=== PATIENT | female | born 2005 | race Caucasian/White ===

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

== ENCOUNTER 2024-10-30 02:31 | Observation (INO) | payer BC, OTHER ==
[~2024-10-30] VITALS: Ht 172.7 cm; Wt 77.1 kg
[2024-10-30 03:22] LABS: BASOPHILS ABSOLUTE AUTO 0.03 K/mm3 (0.00-0.23); BASOPHILS PERCENT AUTO 0 % (0-2); EOSINOPHILS ABSOLUTE AUTO 0.15 K/mm3 (0.00-0.68); EOSINOPHILS PERCENT AUTO 2 % (0-6); Hemoglobin 13.1 g/dL (11.5-16.0); IMMATURE GRAN ABSOLUTE AUTO 0.03 K/mm3 (0.00-0.10); IMMATURE GRAN PERCENT AUTO 0 % (0-1); LYMPHOCYTES ABSOLUTE AUTO 2.94 K/mm3 (0.84-5.20); LYMPHOCYTES PERCENT AUTO 34 % (21-46); MONOCYTES ABSOLUTE AUTO 0.67 K/mm3 (0.16-1.47); MONOCYTES PERCENT AUTO 8 % (4-13); Mean Corpuscular HGB Conc 33.6 g/dL (31.5-36.5); Mean Corpuscular Volume 89 fL (80-100); NEUTROPHILS ABSOLUTE AUTO 4.88 K/mm3 (1.96-9.15); NEUTROPHILS PERCENT AUTO 56 % (41-73); Platelet Count 244 K/mm3 (150-400); RDW Coefficient Variation 12.7 % (11.7-14.2); RDW Standard Deviation 41.9 fL (35.1-46.3); Red Blood Cell Count 4.37 M/mm3 (3.80-5.20)
[2024-10-30 04:47] LABS: Source, Urine Clean Catch
[2024-10-30 04:58] LABS: Bun/Creatinine Ratio 18.9 (12.0-20.0); Calcium, Blood 8.3 mg/dL (8.5-10.1); Creatinine, Blood 0.58 mg/dL (0.40-1.00); Potassium, Blood 3.7 mmol/L (3.5-5.5)
[2024-10-30 05:02] LABS: Appearance, Urine Clear (Clear); Bilirubin, Urine Neg (Neg); Blood, Urine Neg (Neg); Color, Urine Yellow (P-Yellow); Glucose Qualitative, Urine Neg (Neg); Ketones, Urine Neg (Neg); Leukocyte Esterase, Urine Neg (Neg); Nitrite, Urine Neg (Neg); Protein, Urine Neg (Neg); Urobilinogen, Urine NORM (Normal)
[2024-10-30 05:27] LABS: Albumin, Blood 3.3 g/dL (3.4-5.0); Bilirubin, Total 0.2 mg/dL (0.1-1.0); Total Protein, Blood 6.2 g/dL (6.4-8.2)
[2024-10-30] MEDS ORDERED: Ondansetron HCl 2 MG / ML 2ML Vial IV ONE (05:30)
[2024-10-30] MEDS ORDERED: NS 1,000 ML IV SCH ×3 (05:30→08:00)
[2024-10-30] MEDS ORDERED: FentaNYL Citrate 50 MCG/ML 2 ML Injection IV ONE (05:30)
[2024-10-30] MEDS ORDERED: MetroNIDAZOLE 500MG/NS 100 ml 100 ML IV ONE (07:00)
[2024-10-30] MEDS ORDERED: Morphine Sulfate 4 MG/1 ML Injection IV ONE (07:00)
[2024-10-30] MEDS ORDERED: CefTRIAXone Sodium 1,000 MG in NS 100 ML IV ONE (07:00)
[2024-10-30] MEDS ORDERED: Ondansetron HCl 2 MG / ML 2ML Vial IV PRN (07:40)
[2024-10-30] MEDS ORDERED: FLU VACC TS2024-25(6MOS UP)/PF 45 MCG/0.5 ML SYRINGE IM SCH (07:40)
[2024-10-30] MEDS ORDERED: Morphine Sulfate 4 MG/1 ML Injection IV PRN (07:40)
[2024-10-30 12:41] VITALS: BP 134/84
[2024-10-30] MEDS ORDERED: NEXPLANON68 MG SQ (12:47)
[2024-10-30] MEDS ORDERED: Indocyanine Green 25 MG Vial IV ONE (13:00)
[2024-10-30] MEDS ORDERED: MetroNIDAZOLE 500MG/NS 100 ml 100 ML IV SCH (13:00)
--- NOTE | 2024-10-30 13:02 | NUR ---
ARRIVAL NOTE PT IS A/OX4, IND, AMBULATING IN ROOM. DENIES PAIN AND NAUSEA AT THIS TIME. MOM AT BEDSIDE. VSS. CALL LIGHT IN REACH.
[2024-10-30 14:44] VITALS: BP 125/78
--- NOTE | 2024-10-30 18:06 | NUR ---
SHIFT SUMMARY PT IS A/O X4, INDEPENDENT IN ROOM, TOLERATING CL DIET AND VOIDING. VSS. PT WILL BE NPO AT 0000 FOR SURGERY TOMORROW. MEDICATED FOR NAUSEA, PT REPORTS PAIN IS TOLERABLE. FAMILY AT BEDSIDE. CALL LIGHT IN REACH.
[2024-10-30 19:31] VITALS: BP 117/74
[2024-10-30] MEDS ORDERED: NS 250 ML IV PRN (22:25)
[2024-10-30] MEDS ORDERED: Metoclopramide HCl 5MG / ML 2ML Vial IV PRN (22:30)
[2024-10-31] VITALS (13 sets, daily range): BP systolic 102–158; BP diastolic 72–99
--- NOTE | 2024-10-31 05:19 | NUR ---
SHIFT SUMMARY NOC PT A/O X 4. PLEASANT AND COOPERATIVE WITH CARE. VSS. PT HAD C/O RUQ 5/10 PAIN AT BEGINNING OF SHIFT AND MEDICATED PER EMAR. PT ALSO HAD C/O N/V X 2 AND GIVEN ANTIEMETICS. PT RECEIVING IV ABX AND HAS BEEN NPO SINCE MIDNIGHT IN PREPARTION FOR CHOLY SOMETIME TODAY. PT MOM STAYED NIGHT WITH PT TO HELP RELIEVE ANXIETY ABOUT PROCEDURE. PT CURRENTLY RESTING WITH BED IN LOWEST POSITON, AND CALL LIGHT WITHIN REACH.
[2024-10-31 06:57] LABS: BASOPHILS ABSOLUTE AUTO 0.02 K/mm3 (0.00-0.23); BASOPHILS PERCENT AUTO 0 % (0-2); EOSINOPHILS ABSOLUTE AUTO 0.03 K/mm3 (0.00-0.68); EOSINOPHILS PERCENT AUTO 0 % (0-6); Hemoglobin 13.8 g/dL (11.5-16.0); IMMATURE GRAN ABSOLUTE AUTO 0.07 K/mm3 (0.00-0.10); IMMATURE GRAN PERCENT AUTO 1 % (0-1); LYMPHOCYTES ABSOLUTE AUTO 2.33 K/mm3 (0.84-5.20); LYMPHOCYTES PERCENT AUTO 33 % (21-46); MONOCYTES ABSOLUTE AUTO 0.58 K/mm3 (0.16-1.47); MONOCYTES PERCENT AUTO 8 % (4-13); Mean Corpuscular HGB 29.4 pg (26.0-34.0); Mean Corpuscular HGB Conc 33.7 g/dL (31.5-36.5); Mean Corpuscular Volume 87 fL (80-100); NEUTROPHILS ABSOLUTE AUTO 3.96 K/mm3 (1.96-9.15); NEUTROPHILS PERCENT AUTO 57 % (41-73); RDW Coefficient Variation 12.7 % (11.7-14.2); RDW Standard Deviation 40.6 fL (35.1-46.3); Red Blood Cell Count 4.69 M/mm3 (3.80-5.20); White Blood Cell Count 6.99 K/mm3 (4.00-11.30)
[2024-10-31 07:18] LABS: Bun/Creatinine Ratio 13.9 (12.0-20.0); Calcium, Blood 8.4 mg/dL (8.5-10.1); Creatinine, Blood 0.43 mg/dL (0.40-1.00)
[2024-10-31 08:44] LABS: Mean Platelet Volume 10.1 fL (9.1-12.4); Platelet Count 224 K/mm3 (150-400)
[2024-10-31] MEDS ORDERED: CefTRIAXone Sodium 1,000 MG in NS 100 ML IV SCH (09:00)
[2024-10-31] MEDS ORDERED: CeFAZolin Sodium 2,000 MG in NS 100 ML IV SCH (11:35)
[2024-10-31] MEDS ORDERED: Lactated Ringer's 1,000 ML IV SCH (11:35)
--- NOTE | 2024-10-31 11:58 | NUR ---
PT TAKEN TO DAY SURGERY.
--- NOTE | 2024-10-31 12:05 | NUR ---
PT TO UNIT VIA W/C. ABLE TO TRANSFER INDEPENDENTLY TO [facility] IN DAY SURGERY. MOM AT BEDSIDE. History, Chart, Medications and Allergies reviewed before start of procedure. Pre-Op teaching done. Pt verbalizes understanding. ALL BELONGINGS LEFT IN PT'S ROOM. PT'S NOSE STUD REMAINS IN PLACE. JEWELRY REFUSAL SIGNED AND TAPE PLACED OVER PIERCING.
[2024-10-31] MEDS ORDERED: Bupivacaine 0.25% Epi 1:200000 30 ML Vial ONE (12:45)
[2024-10-31] MEDS ORDERED: Rocuronium Bromide 10 MG/ML 5ML Injection IV ONE (12:53)
[2024-10-31] MEDS ORDERED: Ondansetron HCl 2 MG / ML 2ML Vial ONE (12:53)
[2024-10-31] MEDS ORDERED: Dexamethasone Sod Phos 10 MG/ML 1ML VIAL ONE (12:53)
[2024-10-31] MEDS ORDERED: Ketorolac Tromethamine 30mg Vial ONE (12:53)
[2024-10-31] MEDS ORDERED: HYDROmorphone HCl 0.5 MG/0.5 ML SYR ONE ×2 (12:54→14:48)
[2024-10-31] MEDS ORDERED: FentaNYL Citrate 50 MCG/ML 2 ML Injection ONE ×2 (12:55→13:52)
[2024-10-31] MEDS ORDERED: propofoL 20 ML IV ONE ×2 (12:55→14:10)
[2024-10-31] MEDS ORDERED: propofoL 50 ML IV ONE (12:56)
[2024-10-31] MEDS ORDERED: Sugammadex Sodium 200 MG/2ML SDV (100 MG/ML) ONE (12:56)
--- NOTE | 2024-10-31 13:39 | NUR ---
10/31/24 1339 Caprice,Renee FLAGYL 500MG STARTED IN PREOP AT 1247.
[2024-10-31] MEDS ORDERED: HYDROcodone 5-APAP 325 TAB PO PRN (14:30)
--- NOTE | 2024-10-31 15:23 | NUR ---
POST OP ARRIVED FROM PACU VIA HANDYRDAVID, AWAKE, A&OX4, DENIES ANY NEED FOR PAIN OR NAUSEA MED AT THIS TIME, LUNGS CLEAR T/O, HRR, ACTIVE BT'S X4, ABD SOFT, SLIGHTLY DISTENDED, 4 ABD LAP INCISIONS NOTED W/ GAUZE AND TEGADERM, C/D/I, IV RFA PATENT, CLEAR LIQUIDS GIVEN, CONT. TO MONITOR VS AND ANY CHANGES.
[2024-10-31] MEDS ORDERED: Ibuprofen 400 MG Tab PO PRN (16:30)
[2024-10-31] MEDS ORDERED: IBUP400 PO (17:03)
[2024-10-31] MEDS ORDERED: HYDR1TAB94 PO (17:04)
[2024-10-31] MEDS ORDERED: METO10 PO (18:24)
--- NOTE | 2024-10-31 18:34 | NUR ---
DC'D HOME, DC INSTRUCTIONS GIVEN, VERBALIZED UNDERSTANDING, REPORT HAVING ADEQUATE PAIN CONTROL WITH NORCO, RX FOR REGLAN CALLED TO [facility]. VOIDED AND AMBULATED WITHOUT DIFFICULTY.
== END 2024-10-31 18:31 | disposition home or self-care (01) ==
LOC: ER 02:31 → ERHOLD 02:32 → SURS 02:32
PROVIDERS: Emergency Medicine; Surgery; ADMIT Internal Medicine
PROC: 0FT44ZZ Resection of Gallbladder, Percutaneous Endoscopic Approach (ICD-10-PCS; principal; 2024-10-31 12:00)
DX: K80.12 Calculus of gallbladder with acute and chronic cholecystitis without obstruction (principal); E66.9 Obesity, unspecified; Z68.35 Body mass index [BMI] 35.0-35.9, adult
CPT/HCPCS: 36415; 74177; 74181; 76705; 80048; 81003; 81025; 82040; 82247; 83690; 84075; 84155; 84450; 84460; 85025; 85049; 88304; 96361; 96365-59; 96366; 96368; 96375; 96376; 99285-25; A9270; G0378; J0696; J1100; J1171; J1885; J2270; J2405; J2704; J2765; J3010; J7030; J7050; Q9967

== ENCOUNTER → 2025-05-21 | Outpatient (CLI) | payer BC, OTHER ==
[~2025-05-21] MED LIST changes: +HYDR1TAB94 PO; +IBUP400 PO; +METO10 PO; +NEXPLANON68 MG SQ
== END | disposition home or self-care (01) ==
LOC: LAB SHORT 15:46 → LAB 15:46
PROVIDERS: Obstetrics & Gynecology
DX: Z34.91 Encounter for supervision of normal pregnancy, unspecified, first trimester (principal); Z3A.12 12 weeks gestation of pregnancy
CPT/HCPCS: 36415; G0145